=== PATIENT | male | born 1985 | race Caucasian/White ===

== ENCOUNTER 2024-10-04 06:34 | Emergency (ER) | payer OTHER, SELFPAY ==
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
--- NOTE | ~2024-10-04 | XR_ITS ---
EXAMINATION: XR HAND AND WRIST COMPLETE LEFT HISTORY: pain, injury COMPARISON: There are no prior studies available for comparison. FINDINGS: Four views of the left wrist including a scaphoid view are submitted. Osseous mineralization is normal. There is no fracture or dislocation. The joint spaces are preserved. The soft tissues are unremarkable. XR/XR hand wrist LT IMPRESSION: No evidence of fracture of the left hand. Electronically signed by: Priyank Amezquita MD 10/04/2024 09:08 AM [facility]
[2024-10-04 06:36] VITALS: BP 132/80; PULSE 75; O2SAT 97
[2024-10-04 06:45] VITALS: BP 135/78; PULSE 65; RESP 17; TEMP 36.7; O2SAT 98; BMI 31.5
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
[2024-10-04 08:23] VITALS: BP 136/86; PULSE 74; RESP 16; O2SAT 98
[2024-10-04 09:54] VITALS: BP 136/86; PULSE 74; RESP 16; TEMP 36.6; O2SAT 98
--- OUTSIDE RECORDS SUMMARY | 2024-10-04 10:31 | XMS_ITS | Clinical Summary ---
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 Active benzonatate (TESSALON) 100 MG capsuleIndications :COVID-19 Take 1 capsule (100 mg total) by mouth 3 (three) times a day as needed for cough. 20 capsule 08/26/2021 Active calcium carbonate (TUMS) 500 MG chewable tabletIndications: COVID-19 Chew 2 tablets (1,000 mg total) 2 times daily (every 12 hours) as needed for indigestion or heartburn. 30 tablet 08/26/2021 Active dexamethasone (DECADRON) 1 MG tabletIndications: COVID-19 Take 6 tablets (6 mg total) by mouth 2 (two) times a day with meals. Do not start before August 27, 2021. 72 tablet 08/27/2021 Active guaiFENesin-dextro methorphan (ROBITUSSIN-DM) 100-10 mg/5 mL liquidIndications: COVID-19 Take 10 mL by mouth every 4 (four) hours as needed for cough. 180 mL 08/26/2021 Active Resolved Problems Problem Noted Date Diagnosed Date Resolved Date COVID-19 08/23/2021 11/17/2023 Social History Tobacco Use Types Packs/Day Years Used Date Smoking Tobacco: Never Assessed Sex and Gender Information Value Date Recorded Sex Assigned at Not on file Gender Identity Not on file Sexual Orientation Not on file Last Filed Vital Signs Vital Sign Reading Time Taken Comments Blood Pressure 135/84 08/26/2021 7:40 AM EST Pulse 66 08/26/2021 7:40 AM EST Temperature 36.6 ??C (97.9 ??F) 08/26/2021 7:40 AM ES T Respiratory Rate 18 08/26/2021 7:40 AM EST Oxygen Saturation 92% 08/26/2021 7:40 AM EST Inhaled Oxygen Concentration - - Weight 96.8 kg (213 lb 6.4 oz) 08/26/2021 6:05 A M EST Height 182.9 cm (6') 08/25/2021 6:00 PM EST Body Mass Index 28.94 08/25/2021 6:00 PM EST Plan of Treatment Health Maintenance Due Date Last Done Comments Hepatitis C Virus Screening 1983 HIV Screening 1996 DTaP/Tdap/Td Vaccines (1 - Tdap) 2002 Hepatitis B Vaccines (1 of 3 - 19+ 3-dose series) 2002 Influenza Vaccine 04/05/2024 COVID-19 Vaccine (2023-2 5 season) 2024 HPV Vaccines Aged Out No longer eligi ble based on patient's age to complete this topic Pneumococcal Vaccine: Pediat laura (0-5 Years) and At-Risk Patients (6 to 49 Years) Aged Out No longer eligible b ased on patient's age to complete this topic Advance Directives * Full Code (Latest Code Status on File) Date Activated Date Inactivated Comments 08/23/2021 3:20 PM
--- OUTSIDE RECORDS SUMMARY | 2024-10-04 10:31 | XMS_ITS | Patient Health Record ---
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 Name Role Phone BHARAT ABDUL Primary Care Provider [phone] Allergies No Known Allergies Reason For Referral No Information Medications Medication SIG (Take, Route, Frequency, Duration) Notes Start Date End Date Status Tamiflu 75 MG 1 capsule Orally Twi ce a day for 5 day(s) 10/19/2019 Not-Taking Calcium Carbonate Antacid 500 MG 2 tablet as needed Orally Twice a day Not-Taking Benzonatate 100 MG 1 capsule as needed Orally Three times a day Not-Taking Dextromethorphan-guaiFENe sin 10-100 MG/5ML 10 ml as needed Orally every 4 hrs Not-Taking Social History Tobacco Use: Social History Observation Description Date Details (start date - stop date) Never Smoker NA - NA Tobacco Use/Smoking Question Answer Notes Are you a nonsmoker Plan Of Treatment No Information Insurance Providers Payer Name Payer Address Payer Phone Subscriber Number Group Number Insured Name Patient Relationship to Insured Coverage Start Date Coverage End Date [facility] [address] [address] [place], [place] [phone] [id number] Santhosh Farrell Self - patient is the insured Medical (General) History Medical History History ICD Code pneumonia d/t covid Hospitalization History Reason Date(Month/Year) pneumonia d/t covid 08/2021
== END 2024-10-04 09:54 | disposition home or self-care (01) ==
PROVIDERS: Emergency Provider Emergency Medicine
DX: S60.512A Abrasion of left hand, initial encounter (principal); V43.52XA Car driver injured in collision with other type car in traffic accident, initial encounter; R07.81 Pleurodynia; R91.8 Other nonspecific abnormal finding of lung field; Y93.89 Activity, other specified; Y92.411 Interstate highway as the place of occurrence of the external cause; Y99.9 Unspecified external cause status
CPT/HCPCS: 70450; 71250; 72125; 73110; 73130; 99283; 99284

== ENCOUNTER → 2024-10-04 07:08 | Outpatient (BNV) | payer OTHER, SELFPAY | PROVIDERS: Emergency Provider Emergency Medicine; Visit Provider Radiology Diagnostic Radiology | DX: M25.532 Pain in left wrist (principal); M54.2 Cervicalgia; S09.90XA Unspecified injury of head, initial encounter; R07.82 Intercostal pain; M79.642 Pain in left hand | CPT/HCPCS: 70450; 71250; 72125; 73110; 73130 ==